=== PATIENT | female | born 1935 | race Hispanic/Latino ===

== ENCOUNTER → 2021-08-12 | Outpatient (CLI) | payer OTHER | END | disposition home or self-care (01) | LOC: RAH 09:14 | PROVIDERS: ATTEND Internal Medicine | DX: S30.0XXA Contusion of lower back and pelvis, initial encounter (principal); S70.01XA Contusion of right hip, initial encounter; S50.01XA Contusion of right elbow, initial encounter; M47.816 Spondylosis without myelopathy or radiculopathy, lumbar region; M25.78 Osteophyte, vertebrae; M41.85 Other forms of scoliosis, thoracolumbar region; X58.XXXA Exposure to other specified factors, initial encounter; Y93.89 Activity, other specified; Y92.89 Other specified places as the place of occurrence of the external cause; Y99.8 Other external cause status | CPT/HCPCS: 72100; 72220; 73080; 73502 ==

== ENCOUNTER 2023-06-16 17:53 | Emergency (ER) | payer OTHER ==
[~2023-06-16] VITALS: Ht 152.4 cm; Wt 56.2 kg
[2023-06-16] MEDS ORDERED: ACETAMINOPHEN 500 MG TABLET PO ONE (19:00)
[2023-06-16 21:28] VITALS: BP 168/78; PULSE 84; RESP 18; O2SAT 98
== END 2023-06-16 21:37 | disposition home or self-care (01) ==
LOC: EDH 17:53
DX: S00.03XA Contusion of scalp, initial encounter (principal); W18.39XA Other fall on same level, initial encounter; Y93.89 Activity, other specified; Y92.89 Other specified places as the place of occurrence of the external cause; Y99.8 Other external cause status
CPT/HCPCS: 70450